=== PATIENT | male | born 1970 ===

== ENCOUNTER 2020-10-16 15:51 | Emergency (ER) | payer SELFPAY ==
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
[2020-10-16] MEDS ORDERED: LACTATED RINGERS 1,000 ML IV ONE (16:42)
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
[2020-10-16 17:17] LABS: Basophils # (Auto) 0.1 K/mm3 (0.0-0.1); Basophils % (Auto) 2.8 % (0.0-1.8); Eosinophils # (Auto) 0.1 K/mm3 (0.0-0.4); Eosinophils % (Auto) 2.1 % (0.0-4.3); Hematocrit 42.6 % (35.5-45.6); Hemoglobin 14.3 gm/dl (11.8-15.2); Lymphocytes % (Auto) 52.1 % (13.4-35.0); Mean Corpuscular HGB Conc 33 % (32-34); Mean Corpuscular Volume 91 fl (84-94); Monocytes # (Auto) 0.3 K/mm3 (0.0-0.8); Monocytes % (Auto) 6.8 % (0.0-7.3); Platelet Count 241 K/mm3 (140-440); Red Cell Distribution Width 15.4 % (13.2-15.2)
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
[2020-10-16 17:19] LABS: Alanine Aminotransferase 99 units/L (7-56); Albumin 5.2 g/dL (3.9-5); Blood Urea Nitrogen 4 mg/dL (9-20); Calcium 9.2 mg/dL (8.4-10.2); Hemolysis Index 3
[2020-10-16 17:21] LABS: BUN/Creatinine Ratio 7
[2020-10-16 17:25] LABS: INR 0.97 (0.87-1.13)
[2020-10-16 17:26] LABS: Partial Thromboplastin Time 34.1 Sec. (24.2-36.6)
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
[2020-10-16] MEDS ORDERED: ACETAMINOPHEN 325 MG TAB PO PRN (17:54)
[2020-10-16] MEDS ORDERED: LORazepam 2 MG TAB PO PRN ×2 (17:54)
[2020-10-16] MEDS ORDERED: LORazepam 2 MG/ML VIAL IM PRN (17:54)
[2020-10-16] MEDS ORDERED: chlordiazePOXIDE 25 MG CAP PO PRN ×2 (17:54)
[2020-10-16] MEDS ORDERED: LORazepam 2 MG/ML VIAL IV PRN (17:54)
[2020-10-16] MEDS ORDERED: ONDANSETRON 4 MG ODT TAB PO PRN (17:54)
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
[2020-10-16] MEDS ORDERED: DEXTROSE 50% IN WATER (25GM) 50 ML SYRINGE IV PRN (18:37)
[2020-10-16] MEDS ORDERED: THIAMINE 100 MG, FOLIC ACID 1 MG, MULTIPLE VITAMIN INJ, ADULT 10 ML in SODIUM CHLORIDE ... IV ONE (18:46)
[2020-10-16 19:06] LABS: Bilirubin,Urine NEG (Negative); Blood,Urine NEG (Negative); Color,Urine Straw (Yellow); Mucus,Urine FEW /HPF; Protein,Urine <15 mg/dL mg/dL (Negative); RBC,Urine < 1.0 /HPF (0.0-6.0); Urobilinogen,Urine < 2.0 mg/dL (<2.0); WBC,Urine < 1.0 /HPF (0.0-6.0)
[2020-10-16 19:14] LABS: Amphetamine Screen,Urine Negative; Benzodiazepines Screen,Urine Negative; Cannabinoid Screen,Urine Negative; Cocaine Screen,Urine Negative; Methadone Screen,Urine Negative; Opiate Screen,Urine Negative
[2020-10-17 02:13] VITALS: BP 123/82
[2020-10-17] MEDS ORDERED: FOLIC ACID 1 MG TAB PO SCH (10:00)
[2020-10-17] MEDS ORDERED: MULTIVITAMINS ,THERAPEUTIC TAB PO SCH (10:00)
[2020-10-17] MEDS ORDERED: THIAMINE 100 MG TAB PO SCH (10:00)
== END 2020-10-17 02:13 | disposition home or self-care (01) ==
LOC: ED 15:51
DX: S09.90XA Unspecified injury of head, initial encounter (principal); R74.01 Elevation of levels of liver transaminase levels; F10.129 Alcohol abuse with intoxication, unspecified; R07.89 Other chest pain; M54.6 Pain in thoracic spine; Z79.899 Other long term (current) drug therapy; Y09 Assault by unspecified means; Y93.89 Activity, other specified; Y92.89 Other specified places as the place of occurrence of the external cause; Y99.8 Other external cause status
CPT/HCPCS: 36415; 70450; 71045; 72125; 72128; 72131; 72170; 80053; 80307; 81001; 82550; 82962; 83690; 84484; 85025; 85610; 85730; 96361; 96365; 96366; 99285; J3411; J7030; J7120; 80320; G0480